=== PATIENT | female | born 1990 | race African-American/Black ===

== ENCOUNTER 2018-09-25 11:07 | Emergency (ER) | payer SELFPAY ==
[2018-09-25 12:09] LABS: #Eosinphils 0.1 thou/uL (0.0-0.7); #Lymphocytes 2.3 thou/uL (1.20-3.40); #Monocytes 0.8 thou/uL (0.11-0.59); %Basophils 0.7 % (0.0-1.0); %Eosinophils 1.5 % (0.0-10.0); %Lymphocytes 37.4 % (21.0-51.0); %Monocytes 12.3 % (0.0-10.0); %Neutrophils 48.2 % (42.0-75.0); Hemoglobin 12.3 g/dL (12.0-16.0); Mean Corpuscular HGB CONC 32.6 g/dL (32.0-36.0); Mean Corpuscular Hemoglobin 27.3 pg (27.0-31.0); Mean Corpuscular Volume 83.6 fL (78.0-98.0); Mean Platelet Volume 8.2 fL (7.4-10.4); Platelet Count 241 thou/uL (130-400); RBC Distribution Width 12.8 % (11.5-14.5); White Blood Cell (WBC) Count 6.1 thou/uL (4.8-10.8)
[2018-09-25 12:22] LABS: ALT (SGPT) 8 U/L (8-55); AST (SGOT) 10 U/L (5-34); Albumin 4.5 g/dL (3.5-5.0); Alkaline Phosphatase 53 U/L (40-150); Anion Gap 13 mmol/L (10-20); BUN (Urea Nitrogen) 11 mg/dL (7.0-18.7); Bilirubin, Total 0.7 mg/dL (0.2-1.2); Calc. Creatinine Clearance 0 mL/min (70-130); Calcium 9.3 mg/dL (7.8-10.44); Carbon Dioxide 20 mmol/L (22-29); Chloride 110 mmol/L (98-107); Estimated GFR-MDRD Greater than 90; Globulin 2.8 g/dL (2.4-3.5); Glucose 87 mg/dL (70-105); Potassium 3.8 mmol/L (3.5-5.1); Protein, Total 7.3 g/dL (6.0-8.3); Sodium 139 mmol/L (136-145)
--- NOTE | 2018-09-25 12:56 | ULT ---
TRANSABDOMINAL VAGINAL PELVIC ULTRASOUND WITH SORIANO SCALE AND COLOR FLOW AND SPECTRAL DOPPLER IMAGING: HISTORY: Vaginal bleeding with clot status post D&C . FINDINGS: The uterus measures 11.1 x 5.6 x 7.6 cm without focal mass. The endometrium is thickened measuring 2 .5 cm and is heterogeneous. The endometrial cavity contains fluid and some heterogeneous material co nsistent with hemorrhage/ retained products of conception. The right ovary measures 3.6 x 2.5 x 1.9 cm and the left ovary measures 3.3 x 2.2 x 2 cm. No adnexal mass or free fluid is seen in the cul-de-sac. Flow is demonstrated to both ovaries. IMPRESSION: Hemorrhage versus retained products of conception in the endometrial cavity. POS: MAGGY
--- NOTE | 2018-09-25 17:37 | CON ---
DATE OF CONSULTATION: 09/25/2018 CONSULTING PROVIDER: Jodi Perez, nurse practitioner in the emergency department. CHIEF COMPLAINT: Vaginal bleeding. HISTORY OF PRESENT ILLNESS: This is a 27-year-old, G4, P3-0-1-3 who is status post elective termination of on 08/12/2018 in [place]. She came in today for acute onset of heavy vaginal bleeding with passage of clots. She passed 2 large clots while here and now her bleeding has resolved. She reports that she had a D and C, and since that time has had light bleeding with several days of no bleeding prior to this. She had some cramping with passage of clots, but her pain has also resolved. She denies any other complaints today. REVIEW OF SYSTEMS: Negative for head, eyes, ears, nose, throat, cardiovascular, respiratory, GI, , neuro, psych, musculoskeletal, skin, or constitutional symptoms other than mentioned above. PAST MEDICAL HISTORY: None. PAST SURGICAL HISTORY: D and C. MEDICATIONS: None. ALLERGIES: NO KNOWN DRUG ALLERGIES. SOCIAL HISTORY: Positive for occasional tobacco use, occasional alcohol use, and occasional marijuana use. She has a boyfriend and 3 children. OB HISTORY: Three prior vaginal deliveries, uncomplicated. PHYSICAL EXAMINATION: VITAL SIGNS: Afebrile with normal vital signs. GENERAL: Awake and alert, in no acute distress. CHEST: Nonlabored breathing. ABDOMEN: Soft and nontender to palpation. No guarding or rebound. PELVIC: No cervical motion tenderness. Bimanual exam reveals a mobile uterus with no adnexal masses palpable. LABORATORY DATA: Hemoglobin 12.3, hematocrit 37.6, otherwise unremarkable. hCG 12.55 IMAGING STUDIES: Transvaginal ultrasound was performed by Radiology, revealing a uterus measuring 11 x 5.6 x 7.6 cm with no focal masses. The endometrium was thickened and heterogeneous with fluid consistent with hemorrhage versus retained products. The ovaries were unremarkable and no fluid was seen in the cul-de- sac. ASSESSMENT AND PLAN: A 27-year-old G4, P3-0-1-3, status post D&C for elective termination of with vaginal bleeding. The bleeding has now resolved with no residual pain, with hCG level at 12 - has likely completely passed at this time. No e/o infection. I discussed with the patient that she may continue to have some bleeding, but as long as she is not having significant passage of clots she can follow up in an outpatient setting for repeat hCG, ultrasound, and discussion of contraceptive options. She wishes to follow up with Dr. Bates at [facility]. Her hemoglobin is stable and the patient is now asymptomatic and can be discharged home. Thank you very much for this consultation. Please let me know if you have any other questions. Job ID: [id number]
== END 2018-09-25 14:21 | disposition home or self-care (01) ==
LOC: ERS 11:07
DX: N93.9 Abnormal uterine and vaginal bleeding, unspecified (principal)
CPT/HCPCS: 36415; 76856; 80053; 84702; 85025; 86900; 86901

== ENCOUNTER 2018-10-02 00:03 | Emergency (ER) | payer SELFPAY ==
[2018-10-02 01:18] LABS: #Basophils 0.1 thou/uL (0.0-0.2); #Eosinphils 0.2 thou/uL (0.0-0.7); #Lymphocytes 3.7 thou/uL (1.20-3.40); #Monocytes 0.9 thou/uL (0.11-0.59); #Neutrophils 3.4 thou/uL (1.40-6.50); %Basophils 0.7 % (0.0-1.0); %Lymphocytes 45.7 % (21.0-51.0); %Monocytes 10.4 % (0.0-10.0); %Neutrophils 41.2 % (42.0-75.0); Hemoglobin 9.5 g/dL (12.0-16.0); Mean Corpuscular HGB CONC 32.5 g/dL (32.0-36.0); Mean Corpuscular Hemoglobin 27.3 pg (27.0-31.0); Mean Corpuscular Volume 84.1 fL (78.0-98.0); Mean Platelet Volume 8.3 fL (7.4-10.4); Platelet Count 242 thou/uL (130-400); RBC Distribution Width 12.6 % (11.5-14.5); Red Blood Cell (RBC) Count 3.46 mill/uL (4.20-5.40); White Blood Cell (WBC) Count 8.2 thou/uL (4.8-10.8)
[2018-10-02 01:21] LABS: BHCG - Serum Negative (NEGATIVE); Pregs Control Background? CLEAR/WHITE (CLR/WHITE); Pregs Control Bar Appear? YES (CONTROL BAR)
[2018-10-02 02:04] LABS: Bilirubin Small (Negative); Blood, Urine Large (Negative); Clarity CLOUDY (Clear); Glucose, Urine (Dipstick) Negative (Negative); Leukocyte Small (Negative); Nitrite Negative (Negative); Protein, Urine (Dipstick) Negative (Neg-Trace); pH, Urine 5.5 (5.0-9.0)
[2018-10-02 02:06] LABS: Bacteria/HPF None Seen HPF (None Seen); Hyaline Casts/LPF 0-3 HYALINE CAST LPF (0-3 Hyaline); Pathc Cast-AUWi Flag 0.95 (0-2.49); RBC/HPF GREATER THAN 50-TNTC HPF (0-3); Squamous Epithelial 0-3 HPF (0-3)
== END 2018-10-02 02:36 | disposition home or self-care (01) ==
LOC: ERS 00:03
DX: N93.8 Other specified abnormal uterine and vaginal bleeding (principal)
CPT/HCPCS: 36415; 81003; 81015; 84703; 85025; 86850; 86900; 86901; 99406